=== PATIENT | female | born 1940 | race Caucasian/White ===

== ENCOUNTER → 2017-02-08 | Outpatient (CLI) | payer MEDICARE, OTHER ==
[~2017-02-08] MED LIST: IBUP600T; VICO5TAB
[2017-02-08 08:40] LABS: MEAN CORPUSCULAR HEMOGLOBIN 31.5 pg (27.0-33.0); MEAN CORPUSCULAR HGB CONC 32.5 g/dl (32.0-36.5); MEAN CORPUSCULAR VOLUME 96.9 fl (80.0-96.0); RED CELL DISTRIBUTION WIDTH 13.4 % (11.5-14.5); WHITE BLOOD COUNT 6.9 K/mm3 (4.0-10.0)
--- NOTE | 2017-02-08 08:59 | REP ---
Chest two views HISTORY: Hypertension Comparison: 07/02/2009 The lungs are clear. The heart is normal in size. The pulmonary vasculature is normal in appearance. The bony structure is intact. IMPRESSION: No acute disease. Signed by Vaughn Moreno MD 02/08/2017 08:50 A
[2017-02-08 09:08] LABS: ALBUMIN 3.4 GM/DL (3.2-5.2); ALBUMIN/GLOBULIN RATIO 1.13 (1.00-1.93); ALKALINE PHOSPHATASE 77 U/L (45-117); ALT/SGPT 27 U/L (12-78); ANION GAP 6 MEQ/L (8-16); AST/SGOT 14 U/L (15-37); BILIRUBIN,TOTAL 0.6 MG/DL (0.2-1.0); BLOOD UREA NITROGEN 18 MG/DL (7-18); CALCIUM LEVEL 8.8 MG/DL (8.8-10.2); CARBON DIOXIDE LEVEL 29 MEQ/L (21-32); CHLORIDE LEVEL 105 MEQ/L (98-107); CHOLESTEROL LEVEL 232 MG/DL (<200); CREATININE FOR GFR 0.81 MG/DL (0.55-1.02); GLOMERULAR FILTRATION RATE > 60.0 (>39); GLUCOSE, FASTING 91 MG/DL (83-110); POTASSIUM SERUM 3.9 MEQ/L (3.5-5.1); SODIUM LEVEL 140 MEQ/L (136-145); TOTAL PROTEIN 6.4 GM/DL (6.4-8.2); TRIGLYCERIDES LEVEL 72 MG/DL (<150)
--- NOTE | 2017-02-08 17:07 | ECGEPIP ---
Stationary ECG Study [facility] Test Date: 2017-02-08 Pat Name: MAYE YEE Department: Room: - Gender: F Mri Technologist: DEA : 1940 Requested By: Oralia Hercules Order Number: [id number] Reading MD: Eran Rivera Measurements Intervals [place] Rate: 59 P: 36 [place]: 146 QRS: 33 QRSD: 71 T: 46 QT: 406 QTc: 402 Interpretive Statements Sinus bradycardia Low voltage in limb leads Nonspecific T-wave abnormalities Comparison tracing not on file Electronically Signed On 02-08-2017 17:06:48 EDT by Eran Rivera
== END ==
LOC: M LAB 08:12
PROVIDERS: ATTEND Family Medicine
DX: I10 Essential (primary) hypertension (principal); K62.5 Hemorrhage of anus and rectum; Z79.899 Other long term (current) drug therapy

== ENCOUNTER → 2017-02-16 | Outpatient (CLI) | payer MEDICARE, OTHER ==
[~2017-02-16] MED LIST changes: +GASTROGRAFIN SOLUTION 30ML (Q9963) As Ordered ONE; +ISOVUE-370 76% 100ML VIAL (Q9967) As Ordered ONE
--- NOTE | 2017-02-16 15:31 | REP ---
REASON: Left lower quadrant mass and rectal bleeding. COMPARISON: None. CONTRAST: 100 mL Isovue 370. The precontrast enhanced portions of the examination shows hepatic and splenic densities to be within normal limits. There are no nephroliths. The patient is status post cholecystectomy. Lung bases are clear. Contrast enhanced portion of the examination shows the liver, spleen, pancreas, adrenal glands, and kidneys to be within normal limits. The abdominal aorta and para-aortic regions are within normal limits. There extensive descending colon diverticulosis. No free fluid or free air is seen in the abdomen. There is a small to moderate hiatal hernia. CT PELVIS: There is extensive sigmoid colon diverticulosis with possible areas of sigmoid colon mucosal thickening which could indicate chronic diverticular scarring. This can only be suggested by CT. There is no free fluid or free air. There is no pelvic mass or adenopathy. Bone window technique throughout the examination shows chronic spinal degenerative changes. IMPRESSION: There is evidence of diverticulosis and rather extensively in the sigmoid colon as described above. Consideration should be made for followup with colonoscopy to rule out the possibility of concomitant neoplasm obscured by what appear to be marked chronic diverticular changes. Other findings are described above. Signed by Tylor Olivas DO 02/16/2017 04:22 P
== END ==
LOC: M RAD 12:38
PROVIDERS: ATTEND Family Medicine
DX: K62.5 Hemorrhage of anus and rectum (principal); D48.7 Neoplasm of uncertain behavior of other specified sites; K57.30 Diverticulosis of large intestine without perforation or abscess without bleeding
CPT/HCPCS: 74178; Q9963; Q9967

== ENCOUNTER 2017-05-14 11:11 | Outpatient (CLI) | payer MEDICARE, OTHER ==
[~2017-05-14] VITALS: Ht 154.9 cm; Wt 68.0 kg
[~2017-05-14 11:11] MED LIST changes: +ESTR1.5T2 PO; -GASTROGRAFIN SOLUTION 30ML (Q9963) As Ordered ONE; -ISOVUE-370 76% 100ML VIAL (Q9967) As Ordered ONE; +LEVO150T7 PO; +NEXI40CA PO; +NS 1,000 ML IV ONE; +SIMV40TA2 PO
[2017-05-14] MEDS ORDERED: PROPOFOL 500 MG/50 ML VIAL As Ordered ONE (13:03)
[2017-05-14] MEDS ORDERED: LIDOCAINE 2% INJ 100 MG/5 ML SDV (FOR ANES.) As Ordered ONE (13:03)
--- NOTE | 2017-05-14 13:14 | ROOR ---
Patient Name: Rosaura Campos Procedure Date: 05/14/2017 12:50 PM Date of : 1940 Age: 77 Room: [facility] Gender: Female Note Status: Finalized Procedure: Total Colonoscopy to Cecum Indications: Rectal bleeding, Abnormal CT of the GI tract, Change in bowel habits Providers: Neil Hall MD Referring MD: ROSEMARY RAMIREZ MD Requesting Provider: Medicines: Monitored Anesthesia Care Complications: No immediate complications. Procedure: Pre-Anesthesia Assessment: - The heart rate, respiratory rate, oxygen saturations, blood pressure, adequacy of pulmonary ventilation, and response to care were monitored throughout the procedure. The Colonoscope was introduced through the anus and advanced to the cecum, identified by appendiceal orifice and ileocecal valve. The colonoscopy was performed without difficulty. The patient tolerated the procedure well. The quality of the bowel preparation was excellent. Findings: The perianal and digital rectal examinations were normal. Non-bleeding internal hemorrhoids were found during retroflexion. The hemorrhoids were small and Grade I (internal hemorrhoids that do not prolapse). Multiple small and large-mouthed diverticula were found in the recto-sigmoid colon, sigmoid colon and descending colon. The exam was otherwise without abnormality on direct and retroflexion views. Impression: - Non-bleeding internal hemorrhoids. - Diverticulosis in the recto-sigmoid colon, in the sigmoid colon and in the descending colon. - The examination was otherwise normal on direct and retroflexion views. - No specimens collected. - The exam was otherwise normal to the cecum. Recommendation: - Patient has a contact number available for emergencies. The signs and symptoms of potential delayed complications were discussed with the patient. Return to normal activities tomorrow. Written discharge instructions were provided to the patient. - High fiber diet. - Discharge patient to home. - Continue present medications. - Repeat colonoscopy for symptoms only. - Return to referring physician. - The findings and recommendations were discussed with the patient's family. Neil Hall MD Neil Hall MD 05/14/2017 1:14:13 PM This report has been signed electronically. Number of Addenda: 0 Note Initiated On: 05/14/2017 12:50 PM Estimated Blood Loss: Estimated blood loss: none.
[2017-05-14 13:37] VITALS: BP 129/62
== END 2017-05-14 13:50 | disposition home or self-care (01) ==
LOC: M OPP 11:11
PROVIDERS: ATTEND Internal Medicine Gastroenterology
DX: R93.3 Abnormal findings on diagnostic imaging of other parts of digestive tract (principal); K62.5 Hemorrhage of anus and rectum; R19.4 Change in bowel habit; K64.0 First degree hemorrhoids; K57.30 Diverticulosis of large intestine without perforation or abscess without bleeding; E78.5 Hyperlipidemia, unspecified; E03.9 Hypothyroidism, unspecified; K59.00 Constipation, unspecified; R12 Heartburn; M19.90 Unspecified osteoarthritis, unspecified site; M25.60 Stiffness of unspecified joint, not elsewhere classified; Z85.828 Personal history of other malignant neoplasm of skin; Z92.3 Personal history of irradiation; J32.9 Chronic sinusitis, unspecified; Z79.899 Other long term (current) drug therapy

== ENCOUNTER 2021-02-14 18:20 | Emergency (ER) | payer MEDICARE, OTHER ==
[~2021-02-14] VITALS: Ht 157.5 cm; Wt 61.4 kg
[~2021-02-14 18:20] MED LIST changes: -NS 1,000 ML IV ONE; -SIMV40TA2 PO; +SIMV40TA20 PO
[2021-02-14] MEDS ORDERED: NORCO, ANEXSIA 5/325MG TABLET (HYDROcodone/ACETAMINOPHEN) PO ONE (20:50)
--- NOTE | 2021-02-14 21:54 | REPVR ---
PROCEDURE INFORMATION: Exam: XR Lumbosacral Spine Exam date and time: 02/14/2021 7:57 PM Age: 80 years old Clinical indication: Low back pain; Patient HX: Fell this am striking left hip/buttock area; Additional info: Fall/pain TECHNIQUE: Imaging protocol: XR of the lumbosacral spine. Views: 4 or 5 views. COMPARISON: CT ABD PELVIS W/O FOL BY WIT 02/16/2017 2:33 PM FINDINGS: Bones/joints: Minimal levoscoliosis. No pars defects. Facet arthropathy is noted at L5-S1. Degenerative disc narrowing is noted at L4-L5 and L5-S1 with endplate sclerosis. There is mild spurring at L4-L5 and minimal spurring at L5-S1. Slight interspace narrowing at L3-L4. No fracture or compression. Soft tissues: Unremarkable. Intraperitoneal space: Status post cholecystectomy. IMPRESSION: 1. Degenerative disc changes primarily L4-S1 with facet arthropathy at L5-S1. 2. Otherwise negative lumbar spine. No fracture. Electronically signed by: Darrell Jerez On 02/14/2021 21:54:14 PM
--- NOTE | 2021-02-14 21:57 | REPVR ---
PROCEDURE INFORMATION: Exam: XR Left Hip Exam date and time: 02/14/2021 7:57 PM Age: 80 years old Clinical indication: Hip pain; Left hip; Additional info: Fall/pain TECHNIQUE: Imaging protocol: XR Left hip. Views: 2 or 3 views hip with pelvis when performed. COMPARISON: CT ABD PELVIS W/O FOL BY ANDRE 02/16/2017 2:33 PM FINDINGS: Bones/joints: Degenerative changes in the lower lumbar spine. The bony ring of the pelvis is intact. Mild degenerative changes are noted in the hips. No fractures. Soft tissues: Unremarkable. IMPRESSION: 1. Degenerative change of the lower lumbar spine. 2. Mild degenerative changes of the hips. 3. Otherwise negative left hip and pelvis. No fracture. Electronically signed by: Darrell Jerez On 02/14/2021 21:57:28 PM
--- NOTE | 2021-02-14 23:06 | REPVR ---
PROCEDURE INFORMATION: Exam: CT Lumbar Spine Without Contrast Exam date and time: 02/14/2021 10:37 PM Age: 80 years old Clinical indication: Injury or trauma; Fall; Blunt trauma (contusions or hematomas); Additional info: Fall, pain to lower back TECHNIQUE: Imaging protocol: Computed tomography images of the lumbar spine without contrast. Radiation optimization: All CT scans at this facility use at least one of these dose optimization techniques: automated exposure control; mA and/or kV adjustment per patient size (includes targeted exams where dose is matched to clinical indication); or iterative reconstruction. COMPARISON: CR Spine. Lumbosacral, complete 02/14/2021 7:35 PM FINDINGS: Vertebrae: No fracture or compression. L1-L2: The disc is within normal limits with minimal facet arthropathy and no spinal or foraminal stenosis. L2-L3: The disc is within normal limits with minimal facet arthropathy and no significant spinal or foraminal stenosis. L3-L4: Minimal diffuse bulge of the disc, greatest at the posterolateral aspects, right greater than left and mild facet arthropathy with no significant spinal or foraminal stenosis. L4-L5: Prominent interspace narrowing with vacuum phenomenon and endplate sclerosis and minimal posterior osteophytes, greatest to the left of midline. There is mild facet arthropathy with no significant spinal stenosis. There is borderline left neural foraminal stenosis. L5-S1: Prominent interspace narrowing with vacuum phenomenon and mild facet arthropathy. There is low normal size of the right neural foramen. No spinal stenosis. Gallbladder and bile ducts: Status post cholecystectomy. Vasculature: There is mild calcification of the abdominal aorta. Soft tissues: Unremarkable. IMPRESSION: 1. Multilevel degenerative disc and bony changes, primarily L4-S1 with no significant spinal or foraminal stenosis. 2. Otherwise negative CT lumbar spine. No acute fracture or compression. Electronically signed by: Darrell Jerez On 02/14/2021 23:06:02 PM
[2021-02-14 23:11] VITALS: BP 149/72
--- NOTE | 2021-02-14 23:13 | REPVR ---
PROCEDURE INFORMATION: Exam: CT Left Lower Extremity Without Contrast, Hip Exam date and time: 02/14/2021 10:37 PM Age: 80 years old Clinical indication: Injury or trauma; Fall; Blunt trauma; Hip; Left; Additional info: Fall, severe pain, trouble ambulating TECHNIQUE: Imaging protocol: CT of the Left lower extremity without contrast was performed. Exam focused on the hip. Radiation optimization: All CT scans at this facility use at least one of these dose optimization techniques: automated exposure control; mA and/or kV adjustment per patient size (includes targeted exams where dose is matched to clinical indication); or iterative reconstruction. COMPARISON: CR Hip,AP,LAT to include Pelvis LEFT 02/14/2021 7:35 PM FINDINGS: Bones/joints: There is a nondisplaced fracture of the left superior pubic ramus medially and in the mid portion. No proximal femoral fracture. Soft tissues: Slight subcutaneous edema lateral to the left hip. Bowel: Colonic diverticulosis in the sigmoid colon. Urinary bladder: Minimal gas in the urinary bladder. Reproductive: Status post hysterectomy. IMPRESSION: 1. Nondisplaced fracture of the left superior pubic ramus. 2. Sigmoid diverticulosis. 3. Minimal gas in the urinary bladder. 4. Status post hysterectomy. 5. Slight subcutaneous edema lateral to the left hip. Electronically signed by: Darrell Jerez On 02/14/2021 23:13:05 PM
[2021-02-14] MEDS ORDERED: ROLLMIS8 XX ×2 (23:23→23:26)
[2021-02-14] MEDS ORDERED: HYDR-3713 PO (23:23)
[2021-02-14] MEDS ORDERED: NORCO 5/325MG TABLET (BULK FOR ED) PO ONE (23:30)
[2021-02-16] MEDS ORDERED: ROLLMIS8 XX (09:44)
== END 2021-02-15 00:19 | disposition home or self-care (01) ==
LOC: M ED 18:20
DX: S32.502A Unspecified fracture of left pubis, initial encounter for closed fracture (principal); M54.5 Low back pain; W01.198A Fall on same level from slipping, tripping and stumbling with subsequent striking against other object, initial encounter; Y92.009 Unspecified place in unspecified non-institutional (private) residence as the place of occurrence of the external cause; Y93.89 Activity, other specified; Y99.9 Unspecified external cause status; K57.30 Diverticulosis of large intestine without perforation or abscess without bleeding; M51.36 Other intervertebral disc degeneration, lumbar region; M46.96 Unspecified inflammatory spondylopathy, lumbar region; Z79.899 Other long term (current) drug therapy

== ENCOUNTER → 2021-03-30 | Outpatient (CLI) | payer MEDICARE, OTHER ==
[~2021-03-30] MED LIST changes: +HYDR-3713 PO; +ROLLMIS8 XX
[2021-03-30 14:19] LABS: HEMATOCRIT 44.1 % (36.0-47.0); MEAN CORPUSCULAR HEMOGLOBIN 29.6 pg (27.0-33.0); MEAN CORPUSCULAR HGB CONC 31.7 g/dl (32.0-36.5); MEAN CORPUSCULAR VOLUME 93.2 fl (80.0-96.0); PLATELET COUNT, AUTOMATED 279 10^3/uL (150-450); RED BLOOD COUNT 4.73 10^6/uL (4.00-5.40); WHITE BLOOD COUNT 6.6 10^3/uL (4.0-10.0)
[2021-03-30 14:58] LABS: ALBUMIN 3.5 GM/DL (3.2-5.2); ALT/SGPT 23 U/L (12-78); BILIRUBIN,TOTAL 0.6 MG/DL (0.2-1.0); BLOOD UREA NITROGEN 15 MG/DL (7-18); CALCIUM LEVEL 9.8 MG/DL (8.8-10.2); CARBON DIOXIDE LEVEL 30 MEQ/L (21-32); CHLORIDE LEVEL 105 MEQ/L (98-107); CHOLESTEROL LEVEL 160 MG/DL (<200); CREATININE FOR GFR 0.68 MG/DL (0.55-1.30); GLOMERULAR FILTRATION RATE > 60.0 (>32); GLUCOSE, FASTING 89 MG/DL (70-100); HDL CHOLESTEROL 64 MG/DL (>40); LDL CHOLESTEROL 69 MG/DL (<100); NON-HDL-C 96 MG/DL; POTASSIUM SERUM 4.1 MEQ/L (3.5-5.1); SODIUM LEVEL 141 MEQ/L (136-145); THYROID STIMULATING HORMONE < 0.005 uIU/ML (0.358-3.740); TOTAL PROTEIN 6.5 GM/DL (6.4-8.2); TRIGLYCERIDES LEVEL 136 MG/DL (<150)
[2021-03-30 14:59] LABS: TOTAL 25(OH) VITAMIN D 47.3 NG/ML (30.0-100.0)
[2021-03-30 15:13] LABS: HEMOGLOBIN A1c 5.6 %
== END ==
LOC: M LAB 13:37
PROVIDERS: ATTEND Family Medicine
DX: D64.9 Anemia, unspecified (principal); R53.83 Other fatigue; E03.9 Hypothyroidism, unspecified

== ENCOUNTER → 2022-03-16 | Outpatient (CLI) | payer MEDICARE, OTHER ==
[2022-03-16 10:46] LABS: HEMATOCRIT 44.8 % (36.0-47.0); HEMOGLOBIN 14.2 g/dl (12.0-15.5); MEAN CORPUSCULAR HGB CONC 31.7 g/dl (32.0-36.5); MEAN CORPUSCULAR VOLUME 94.5 fl (80.0-96.0); PLATELET COUNT, AUTOMATED 282 10^3/uL (150-450); RED BLOOD COUNT 4.74 10^6/uL (4.00-5.40); WHITE BLOOD COUNT 6.3 10^3/uL (4.0-10.0)
[2022-03-16 11:15] LABS: ALBUMIN 3.4 GM/DL (3.2-5.2); ALT/SGPT 32 U/L (12-78); BILIRUBIN,TOTAL 0.6 MG/DL (0.2-1.0); BLOOD UREA NITROGEN 24 MG/DL (7-18); CALCIUM LEVEL 9.6 MG/DL (8.8-10.2); CARBON DIOXIDE LEVEL 29 MEQ/L (21-32); CHLORIDE LEVEL 109 MEQ/L (98-107); CHOLESTEROL LEVEL 178 MG/DL (<200); CHOLESTEROL RISK RATIO 2.472 (<5); CREATININE FOR GFR 0.87 MG/DL (0.55-1.30); GLOMERULAR FILTRATION RATE > 60.0 (>32); GLUCOSE, FASTING 89 MG/DL (70-100); HDL CHOLESTEROL 72 MG/DL (>40); LDL CHOLESTEROL 83 MG/DL (<100); NON-HDL-C 106 MG/DL; POTASSIUM SERUM 5.2 MEQ/L (3.5-5.1); SODIUM LEVEL 142 MEQ/L (136-145); TRIGLYCERIDES LEVEL 116 MG/DL (<150)
[2022-03-16 11:27] LABS: HEMOGLOBIN A1c 5.7 %
[2022-03-16 11:38] LABS: TOTAL 25(OH) VITAMIN D 42.6 NG/ML (30.0-100.0)
== END ==
LOC: M LAB 08:35
PROVIDERS: ATTEND Family Medicine
DX: D64.9 Anemia, unspecified (principal); R53.83 Other fatigue; E03.9 Hypothyroidism, unspecified

== ENCOUNTER → 2023-03-08 | Outpatient (CLI) | payer MEDICARE, OTHER | LOC: M RAD 11:32 | PROVIDERS: ATTEND Family Medicine | DX: J44.0 Chronic obstructive pulmonary disease with (acute) lower respiratory infection (principal); J18.9 Pneumonia, unspecified organism; I51.7 Cardiomegaly; I70.0 Atherosclerosis of aorta ==

== ENCOUNTER → 2023-05-10 | Outpatient (CLI) | payer MEDICARE, OTHER ==
[2023-05-10 10:37] LABS: HEMOGLOBIN 15.4 g/dl (12.0-15.5); MEAN CORPUSCULAR HEMOGLOBIN 30.5 pg (27.0-33.0); MEAN CORPUSCULAR HGB CONC 31.4 g/dl (32.0-36.5); PLATELET COUNT, AUTOMATED 317 10^3/uL (150-450); RED BLOOD COUNT 5.05 10^6/uL (4.00-5.40); WHITE BLOOD COUNT 5.8 10^3/uL (4.0-10.0)
[2023-05-10 11:16] LABS: ALBUMIN 3.6 G/DL (3.2-5.2); ALKALINE PHOSPHATASE 86 U/L (46-116); ALT/SGPT 27 U/L (7.0-40); AST/SGOT 14 U/L (<34); BILIRUBIN,TOTAL 0.8 MG/DL (0.3-1.2); BLOOD UREA NITROGEN 17 MG/DL (9-23); CALCIUM LEVEL 9.8 MG/DL (8.3-10.6); CARBON DIOXIDE LEVEL 34 MMOL/L (20-31); CHLORIDE LEVEL 102 MMOL/L (98-107); CHOLESTEROL LEVEL 201 MG/DL (<200); CHOLESTEROL RISK RATIO 2.73 (<5); CREATININE FOR GFR 0.91 MG/DL (0.55-1.30); GLOMERULAR FILTRATION RATE > 60.0 (>32); GLUCOSE, FASTING 85 MG/DL (74-106); HDL CHOLESTEROL 73.5 MG/DL (>40); LDL CHOLESTEROL 98.7 MG/DL (<100); NON-HDL-C 127.5 MG/DL; POTASSIUM SERUM 4.1 MMOL/L (3.5-5.1); SODIUM LEVEL 143 MMOL/L (136-145); TOTAL PROTEIN 6.2 G/DL (5.7-8.2); TRIGLYCERIDES LEVEL 144 MG/DL (<150)
[2023-05-10 11:17] LABS: THYROID STIMULATING HORMONE 0.011 uIU/ML (0.55-4.78); TOTAL 25(OH) VITAMIN D 50.7 NG/ML (20.0-100.0)
[2023-05-10 11:51] LABS: HEMOGLOBIN A1c 5.9 % (4.0-6.0)
== END ==
LOC: M LAB 09:29
PROVIDERS: ATTEND Family Medicine
DX: R53.83 Other fatigue (principal); I10 Essential (primary) hypertension; E03.9 Hypothyroidism, unspecified

== ENCOUNTER → 2023-07-12 | Outpatient (CLI) | payer MEDICARE, OTHER | LOC: M RAD 12:19 | PROVIDERS: ATTEND Family Medicine | DX: J44.9 Chronic obstructive pulmonary disease, unspecified (principal); I51.7 Cardiomegaly ==

== ENCOUNTER → 2024-04-15 | Outpatient (CLI) | payer MEDICARE, OTHER ==
[2024-04-15 09:57] LABS: HEMATOCRIT 47.6 % (36.0-47.0); HEMOGLOBIN 15.2 g/dl (12.0-15.5); MEAN CORPUSCULAR HEMOGLOBIN 30.6 pg (27.0-33.0); MEAN CORPUSCULAR HGB CONC 31.9 g/dl (32.0-36.5); MEAN CORPUSCULAR VOLUME 95.8 fl (80.0-96.0); PLATELET COUNT, AUTOMATED 297 10^3/uL (150-450); RED BLOOD COUNT 4.97 10^6/uL (4.00-5.40); WHITE BLOOD COUNT 5.2 10^3/uL (4.0-10.0)
[2024-04-15 10:27] LABS: THYROID STIMULATING HORMONE 10.914 uIU/ML (0.55-4.78); TOTAL 25(OH) VITAMIN D 49.6 NG/ML (20.0-100.0)
[2024-04-15 10:28] LABS: HEMOGLOBIN A1c 5.5 % (4.0-6.0)
[2024-04-15 10:31] LABS: ALBUMIN 3.5 G/DL (3.2-5.2); CALCIUM LEVEL 9.5 MG/DL (8.3-10.6); CHOLESTEROL RISK RATIO 2.91 (<5); GLOMERULAR FILTRATION RATE 56.4 (>32); HDL CHOLESTEROL 73.5 MG/DL (>40); LDL CHOLESTEROL 116.5 MG/DL (<100); NON-HDL-C 140.5 MG/DL; POTASSIUM SERUM 4.3 MMOL/L (3.5-5.1); TOTAL PROTEIN 6.5 G/DL (5.7-8.2)
== END ==
LOC: M RAD 08:54
PROVIDERS: ATTEND Family Medicine
DX: I10 Essential (primary) hypertension (principal); D64.9 Anemia, unspecified; R53.83 Other fatigue; R00.1 Bradycardia, unspecified; R94.31 Abnormal electrocardiogram [ECG] [EKG]; Z79.899 Other long term (current) drug therapy

== ENCOUNTER → 2024-11-25 | Outpatient (CLI) | payer MEDICARE, OTHER ==
[2024-11-25 09:32] LABS: HEMATOCRIT 45.6 % (36.0-47.0); HEMOGLOBIN 14.4 g/dl (12.0-15.5); MEAN CORPUSCULAR HEMOGLOBIN 30.3 pg (27.0-33.0); MEAN CORPUSCULAR HGB CONC 31.6 g/dl (32.0-36.5); MEAN CORPUSCULAR VOLUME 95.8 fl (80.0-96.0); PLATELET COUNT, AUTOMATED 285 10^3/uL (150-450); RED BLOOD COUNT 4.76 10^6/uL (4.00-5.40); WHITE BLOOD COUNT 5.9 10^3/uL (4.0-10.0)
[2024-11-25 09:53] LABS: HEMOGLOBIN A1c 5.6 % (4.0-6.0)
[2024-11-25 10:01] LABS: ALBUMIN 3.6 G/DL (3.2-5.2); ALKALINE PHOSPHATASE 82 U/L (35-104); ALT/SGPT 28 U/L (7.0-40); AST/SGOT 19 U/L (<34); BILIRUBIN,TOTAL 0.8 MG/DL (0.3-1.2); BLOOD UREA NITROGEN 21 MG/DL (9-23); CALCIUM LEVEL 9.7 MG/DL (8.3-10.6); CARBON DIOXIDE LEVEL 31 MMOL/L (20-31); CHLORIDE LEVEL 107 MMOL/L (98-107); CHOLESTEROL LEVEL 194 MG/DL (<200); CREATININE FOR GFR 0.93 MG/DL (0.55-1.30); GLOMERULAR FILTRATION RATE > 60.0 (>32); GLUCOSE, FASTING 90 MG/DL (74-106); HDL CHOLESTEROL 71.6 MG/DL (>40); LDL CHOLESTEROL 100.2 MG/DL (<100); NON-HDL-C 122.4 MG/DL; POTASSIUM SERUM 4.7 MMOL/L (3.5-5.1); SODIUM LEVEL 143 MMOL/L (136-145); TOTAL 25(OH) VITAMIN D 42.5 NG/ML (20.0-100.0); TOTAL PROTEIN 6.5 G/DL (5.7-8.2); TRIGLYCERIDES LEVEL 111 MG/DL (<150)
[2024-11-25 10:03] LABS: THYROID STIMULATING HORMONE 7.575 uIU/ML (0.55-4.78)
== END ==
LOC: M RAD 08:30
PROVIDERS: ATTEND Family Medicine
DX: I10 Essential (primary) hypertension (principal); R53.83 Other fatigue; E03.9 Hypothyroidism, unspecified; R94.31 Abnormal electrocardiogram [ECG] [EKG]; Z79.899 Other long term (current) drug therapy

== ENCOUNTER → 2025-06-24 | Outpatient (CLI) | payer MEDICARE, OTHER ==
[2025-06-24 18:31] LABS: CALCIUM LEVEL 10.0 MG/DL (8.3-10.6); CARBON DIOXIDE LEVEL 30 MMOL/L (20-31); CHLORIDE LEVEL 105 MMOL/L (98-107); CREATININE FOR GFR 0.78 MG/DL (0.55-1.30); GLOMERULAR FILTRATION RATE 74.4 (>32); POTASSIUM SERUM 4.3 MMOL/L (3.5-5.1); SODIUM LEVEL 144 MMOL/L (136-145)
[2025-06-24 18:33] LABS: TOTAL 25(OH) VITAMIN D 63.2 NG/ML (20.0-100.0)
[2025-06-24 18:34] LABS: FREE T4 2.50 NG/DL (0.89-1.76)
[2025-06-24 18:57] LABS: BASO # 0.1 10^3/uL (0.0-0.2); BASO % 1.0 % (0.0-1.0); EOS # 0.2 10^3/uL (0.0-0.5); EOS % 2.8 % (0.0-3.0); LYMPH # 1.4 10^3/uL (1.5-5.0); LYMPH % 22.3 % (24.0-44.0); MONO # 0.6 10^3/uL (0.0-0.8); MONO % 9.8 % (2.0-8.0); NEUTROPHILS # 3.9 10^3/uL (1.5-8.5); NEUTROPHILS % 63.9 % (36.0-66.0); PLATELET COUNT, AUTOMATED 330 10^3/uL (150-450)
== END ==
LOC: M LAB 17:18
PROVIDERS: ATTEND Student in an Organized Health Care Education/Training Program
DX: Z00.00 Encounter for general adult medical examination without abnormal findings (principal); E03.9 Hypothyroidism, unspecified; Z87.39 Personal history of other diseases of the musculoskeletal system and connective tissue; Z79.899 Other long term (current) drug therapy

== ENCOUNTER → 2025-07-10 | Outpatient (REF) | payer MEDICARE, OTHER | LOC: M SFHCPLAZ 16:47 | PROVIDERS: ATTEND Student in an Organized Health Care Education/Training Program | DX: R09.89 Other specified symptoms and signs involving the circulatory and respiratory systems (principal) ==

== ENCOUNTER → 2025-07-10 | Outpatient (CLI) | payer MEDICARE, OTHER | LOC: M RAD 15:17 | PROVIDERS: ATTEND Student in an Organized Health Care Education/Training Program | DX: R09.89 Other specified symptoms and signs involving the circulatory and respiratory systems (principal) ==

== ENCOUNTER → 2025-07-19 | Outpatient (CLI) | payer MEDICARE, OTHER ==
[2025-07-19 13:50] LABS: FREE T4 2.06 NG/DL (0.89-1.76)
== END ==
LOC: M LAB 12:31
PROVIDERS: ATTEND Student in an Organized Health Care Education/Training Program
DX: E03.9 Hypothyroidism, unspecified (principal)